=== PATIENT | male | born 1935 | race Caucasian/White ===

== ENCOUNTER 2020-03-31 12:46 | Emergency (ER) | payer MEDICARE ==
[2020-03-31] MEDS ORDERED: ASPIRIN CHEW 81 MG TABLET PO STA (13:04)
--- NOTE | 2020-03-31 13:10 | ED Physician Documentation ---
PD HPI DYSPNEA - Stated complaint Stated Complaint: SOA - Chief complaint Chief Complaint: Resp - History obtained from History obtained from: Patient, Family (daughter) - History of Present Illness Timing - onset: Other (This is a very pleasant 84-year-old gentleman with history of coronary disease, in 2007 he had what was supposed to be a three- vessel bypass, however his understanding from later issues was that only 2 vessels were tried and/or successful because a few weeks later he was having some problems and had an non-STEMI and ended up needing stenting in the vessel that was not addressed back in 2007. This was all done in [place]. More recently, over the last 4 months he has had progressive exertional shortness of breath which is now present at rest. He had an extensive work-up done in [place] including an echocardiogram and a stress test which sounds like it was positive for some reversible ischemia inferiorly. He knew he needed a cardiac work-up but did not want to go back to the [place], so he came up here to live with his daughter who lives in [place]. She did an online search and found that we were the best hospital in the area so they are presenting here having passed se veral closer facilities with cardiac coverage. He denies any chest pain. He does have pedal edema.) Review of Systems Ten Systems: 10 systems reviewed and negative Constitutional: reports: Fatigue Cardiac: reports: Pedal edema. denies: Chest pain / pressure, Palpitations, Calf pain Respiratory: reports: Dyspnea, Cough (chronic) PD PAST MEDICAL HISTORY - Past Medical History Past Medical History: Yes Respiratory: COPD - Past Surgical History Past Surgical History: Yes Cardiovascular: CABG - Present Medications Home Medications: Ambulatory Orders Medication Instructions Recorded Confirmed Albuterol Sulfate [Proair 90 mcg IH 03/31/20 Digihaler] Atenolol [Tenormin] 50 mg PO 03/31/20 Budesonide [Pulmicort] 1 puffs INH BID 03/31/20 03/31/20 Clopidogrel Bisulfate [Clopidogrel] 75 mg PO DAILY 03/31/20 03/31/20 Furosemide 20 mg PO DAILY 03/31/20 03/31/20 Furosemide [Lasix] 40 mg PO DAILY #30 tablet 03/31/20 Omeprazole 20 mg PO DAILY 03/31/20 03/31/20 Potassium Chloride 10 meq PO DAILY 03/31/20 03/31/20 - Allergies Allergies/Adverse Reactions: Allergies Allergy/AdvReac Type Severity Reaction Status Date / Time No Known Drug Allergies Allergy Verified 03/31/20 13:08 - Social History Does the pt smoke?: No Smoking Status: Former smoker Does the pt drink ETOH?: No Does the pt have substance abuse?: No - Family History Family history: reports: Non contributory - Immunizations Immunizations are current?: Yes - POLST Patient has POLST: No PD ED PE NORMAL - Vitals Vital signs reviewed: Yes - General General: Alert and oriented X 3, Other (He appears breathless) - HEENT HEENT: Other (He has periorbital ecchymosis bilaterally, right More than left, he says he fell about 5 days ago hitting his face. He is not in any pain and does not have a headache.) - Neck Neck: Supple, no meningeal sign, No bony TTP - Cardiac Cardiac: RRR, No murmur - Respiratory Respiratory: Other (Slight breathlessness with relatively clear lungs) - Abdomen Abdomen: Non tender - Back Back: No CVA TTP, No spinal TTP - Derm Derm: Normal color, Warm and dry - Extremities Extremities: No calf tenderness / cord, Other (1-2+ pitting bilateral pedal edema) - Neuro Neuro: Alert and oriented X 3, Normal speech Results - Vitals Vitals: Vital Signs - 24 hr 03/31/20 03/31/20 12:58 13:05 Temperature 36.7 C 36.7 C Heart Rate 76 78 Respiratory 16 16 Rate Blood Pressure 136/61 H 136/61 H O2 Saturation 100 100 Oxygen O2 Source Room air - EKG (time done) 1308 Rate: Rate (enter#) (80) Rhythm: NSR, LAE [place]: Normal Intervals: Normal [place] QRS: LVH Ischemia: ST depression (Mild ST depression inferiorly and laterally). No: ST elevation c/w ischemia Compare to prior EKG: Old EKG unavailable - Labs Labs: Laboratory Tests 03/31/20 03/31/20 03/31/20 13:15 13:15 13:15 WBC 11.7 H RBC 4.21 L Hgb 12.5 L Hct 39.3 L MCV 93.3 MCH 29.7 MCHC 31.8 L RDW 15.5 H Plt Count 290 MPV 9.5 Neut # (Auto) 8.3 H Lymph # (Auto) 1.6 [place] # (Auto) 1.3 H Eos # (Auto) 0.4 Baso # (Auto) 0.0 Absolute Nucleated RBC 0.00 Nucleated RBC % 0.0 Sodium 134 L Potassium 3.5 Chloride 100 L Carbon Dioxide 24 Anion Gap 10.0 BUN 19 Creatinine 1.0 Estimated GFR (MDRD) 71 L Glucose 102 H Calcium 8.7 Total Bilirubin 0.7 AST 21 ALT 17 Alkaline Phosphatase 97 Troponin I High Sens 18.9 B-Natriuretic Peptide Total Protein 7.8 Albumin 4.0 Globulin 3.8 Albumin/Globulin Ratio 1.1 Lipase 27 03/31/20 13:15 WBC RBC Hgb Hct MCV MCH MCHC RDW Plt Count MPV Neut # (Auto) Lymph # (Auto) [place] # (Auto) Eos # (Auto) Baso # (Auto) Absolute Nucleated RBC Nucleated RBC % Sodium Potassium Chloride Carbon Dioxide Anion Gap BUN Creatinine Estimated GFR (MDRD) Glucose Calcium Total Bilirubin AST ALT Alkaline Phosphatase Troponin I High Sens B-Natriuretic Peptide 1870 H Total Protein Albumin Globulin Albumin/Globulin Ratio Lipase - Rads (name of study) 1v chest Radiology: EMP read contemporaneously (Cardiomegaly with pulmonary venous congestion, bibasilar atelectasis and small pleural effusions) PD MEDICAL DECISION MAKING - ED course ED course: This is a very pleasant 84-year-old gentleman with what sounds like worsening ischemic cardiomyopathy without chest pain. This is causing worsening of his heart failure. No evidence of OK. 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 Departure - Departure Disposition: 01 Home, Self Care Clinical Impression: Ischemic cardiomyopathy Congestive heart failure Qualifiers: Heart failure type: unspecified Heart failure chronicity: acute on chronic Qualified Code(s): I50.9 - Heart failure, unspecified Condition: Good Record reviewed to determine appropriate education?: Yes Instructions: ED CHF General, ED Diet Low Salt 2Gm Prescriptions: Furosemide [Lasix] 40 mg PO DAILY #30 tablet Comments: Today I spoke with Dr. Cammie Wagoner, He is a very nice mobile unit assistant who does excellent work at the [facility], [place]. He is aware of your issues and the need to get in in a timely fashion. The phone number there is [phone]. You still need to get that referral from your primary care physician, I would call them on Thursday to see if you can have that appointment expedited given the nature of your illness. Return anytime if worse or if you develop any chest pain.
[2020-03-31 13:26] LABS: BASOPHILS % (AUTO) 0.2 %; EOSINOPHILS # (AUTO) 0.4 10^3/uL (0.0-0.7); EOSINOPHILS % (AUTO) 3.4 %; HGB - HEMOGLOBIN 12.5 g/dL (14.0-18.0); LYMPHOCYTES # (AUTO) 1.6 10^3/uL (1.5-3.5); LYMPHOCYTES % (AUTO) 13.7 %; MEAN CORPUSCULAR HEMOGLOBIN 29.7 pg (27.0-31.0); MEAN CORPUSCULAR HGB CONC 31.8 g/dL (32.0-36.0); MEAN CORPUSCULAR VOLUME 93.3 fL (80.0-94.0); MEAN PLATELET VOLUME 9.5 fL (7.4-11.4); MONOCYTES # (AUTO) 1.3 10^3/uL (0.0-1.0); MONOCYTES % (AUTO) 11.2 %; NEUTROPHILS # (AUTO) 8.3 10^3/uL (1.5-6.6); NEUTROPHILS % (AUTO) 70.7 %; PLT - PLATELET COUNT 290 10^3/uL (130-450); RED BLOOD COUNT 4.21 10^6/uL (4.70-6.10); RED CELL DISTRIBUTION WIDTH 15.5 % (12.0-15.0); WHITE BLOOD COUNT 11.7 x10^3/uL (4.8-10.8)
[2020-03-31 13:41] LABS: ALBUMIN/GLOBULIN RATIO 1.1 (1.0-2.2); BILIRUBIN,TOTAL 0.7 mg/dL (0.2-1.0); CALCIUM 8.7 mg/dL (8.5-10.3); TOTAL PROTEIN 7.8 g/dL (6.7-8.2)
--- NOTE | 2020-03-31 13:43 | XRAY Report ---
Reason: dyspnea Procedure Date: 03/31/2020 Accession Number: [id number] / [id number] Procedure: XR - Chest 1 View X-Ray CPT Code: 87283 Final Report FULL RESULT: EXAM: CHEST RADIOGRAPHY EXAM DATE: 03/31/2020 01:24 PM. CLINICAL HISTORY: Dyspnea. COMPARISON: None. TECHNIQUE: 1 view. FINDINGS: Lungs/Pleura: Pulmonary vascularity is increased. Bibasilar atelectasis. Increased interstitial markings lower lung field. Small bilateral effusions. Thickening along the right minor fissure Mediastinum: Post sternotomy. Cardiomegaly. Ectatic aorta Other: None. IMPRESSION: Cardiomegaly, pulmonary venous congestion. Bibasilar atelectasis. Small bilateral effusions RADIA
[2020-03-31] MEDS ORDERED: FUROSEMIDE 40 MG/4 ML VIAL IVP STA (14:05)
[2020-03-31 14:38] VITALS: BP 118/60
== END 2020-03-31 14:37 | disposition home or self-care (01) ==
LOC: ED 12:46
DX: I25.5 Ischemic cardiomyopathy (principal); I50.9 Heart failure, unspecified; Z87.891 Personal history of nicotine dependence
CPT/HCPCS: 36415; 71045; 80053; 83690; 83880; 84484; 85025; 93005; 96374; 99284; A9270